=== PATIENT | male | born 1975 | race Caucasian/White ===

== ENCOUNTER → 2016-02-14 | Outpatient (REF) | payer BC | LOC: M LAB REF 20:00 | PROVIDERS: ATTEND Physician Assistant | DX: J02.9 Acute pharyngitis, unspecified (principal) ==

== ENCOUNTER → 2018-08-13 | Outpatient (CLI) | payer BC ==
--- NOTE | 2018-08-14 07:42 | REP ---
FOUR VIEWS OF THE RIGHT FOOT: REASON: 5th metatarsal pain. PRIORS: None. FINDINGS: The joint spaces are symmetric and relatively well maintained. There is no evidence of acute fracture or destructive osseous lesion. IMPRESSION: Negative. Electronically Signed by Jase Segura DO 08/14/2018 03:40 P
== END ==
LOC: M ADAMS 17:37
PROVIDERS: ATTEND Physician Assistant Medical
DX: M79.671 Pain in right foot (principal)

== ENCOUNTER → 2018-10-11 | Outpatient (REF) | payer BC | LOC: M LAB REF 19:16 | PROVIDERS: ATTEND Physician Assistant Medical | DX: J02.9 Acute pharyngitis, unspecified (principal) ==

== ENCOUNTER → 2020-05-31 | Outpatient (CLI) | payer SELFPAY | LOC: M LABSMTC 10:15 | PROVIDERS: ATTEND Pediatrics | DX: Z20.828 Contact with and (suspected) exposure to other viral communicable diseases (principal); Z11.59 Encounter for screening for other viral diseases ==

== ENCOUNTER → 2020-07-13 | Outpatient (CLI) | payer BC ==
--- NOTE | 2020-07-13 11:06 | REP ---
INDICATION: CONTUSION COMPARISON: None. TECHNIQUE: AP, lateral, bilateral oblique views left hand. FINDINGS: There is a fracture along the distal aspect of the 5th metacarpal bone with volar angulation and mild soft tissue swelling. Degenerative changes at the 5th interphalangeal joints noted. Remainder of the examination is grossly normal. IMPRESSION: Acute boxer's fracture of the 5th metacarpal bone.. <Electronically signed by Olu Hess > 07/13/20 1104
== END ==
LOC: M WUC 09:59
PROVIDERS: ATTEND Physician Assistant
DX: S62.307B Unspecified fracture of fifth metacarpal bone, left hand, initial encounter for open fracture (principal); X58.XXXA Exposure to other specified factors, initial encounter; Y92.9 Unspecified place or not applicable; Y99.9 Unspecified external cause status

== ENCOUNTER → 2021-07-06 | Outpatient (REF) | payer BC | LOC: M LAB REF 16:09 | PROVIDERS: ATTEND Internal Medicine | DX: Z13.89 Encounter for screening for other disorder (principal) ==

== ENCOUNTER → 2023-01-26 | Outpatient (CLI) | payer BC | LOC: M WUC 09:19 | PROVIDERS: ATTEND Nurse Practitioner Family | DX: M25.572 Pain in left ankle and joints of left foot (principal) ==